=== PATIENT | male | born 1995 | race Caucasian/White ===

== ENCOUNTER 2019-04-14 16:50 | Emergency (ER) | payer SELFPAY ==
[2019-04-14 17:12] VITALS: BP 127/72; PULSE 79; TEMP 98.9; BMI 29.6
--- NOTE | 2019-04-14 17:29 | PDOC ---
History of Present Illness - General Chief Complaint: Injury Stated Complaint: LT ANKLE/RT KNEE PAIN Time Seen by Provider: 04/14/19 17:18 - History of Present Illness Initial Comments: 04/14/19 17:19 CHIEF COMPLAINT: L ankle and R knee pain HISTORY OF PRESENT ILLNESS: 24 yo M with no PMH presents to [facility] with left ankle and R knee pain since last night. Patient reports he slipped on a wet floor at a restaurant last night and twisted his left ankle and fell onto his R knee. Patient is ambulatory in ED but reports pain. No recent travel or sick contacts. PAST MEDICAL HISTORY: Denies past medical history FAMILY HISTORY: Denies SOCIAL HISTORY: Denies tobacco, alcohol, illicit drug use. SURGICAL HISTORY: Denies ALLERGIES: No known drug allergies REVIEW OF SYSTEMS General/Constitutional: Denies fever or chills. Denies weakness, weight change. HEENT: Denies change in vision. Denies ear pain or discharge. Denies sore throat. Cardiovascular: Denies chest pain or shortness of breath. Respiratory: Denies cough, wheezing, or hemoptysis. Gastrointestinal: Denies nausea, vomiting, diarrhea or constipation. Denies rectal bleeding. Genitourinary: Denies dysuria, frequency, or change in urination. Musculoskeletal: Pain to L ankle and R knee. Skin and breasts: Denies rash or easy bruising. Neurologic: Denies headache, vertigo, loss of consciousness, or loss of sensation. Psychiatric: Denies depression or anxiety. PHYSICAL EXAM General Appearance: Well-appearing, appropriately dressed. No apparent distress , no intoxication. HEENT: EOMI, PERRLA, normal ENT inspection, normal voice, TMs normal, pharynx normal. No conjunctival pallor. No photophobia, scleral icterus. Neck: Supple. Trachea midline. No tenderness, rigidity, carotid bruit, stridor , lymphadenopathy, or thyromegaly. Respiratory/Chest: Lungs CTAB. No shortness of breath, chest tenderness, respiratory distress, accessory muscle use. No crackles, rales, rhonchi, stridor , wheezing, dullness Cardiovascular: RRR. S1, S2. No JVD, murmur, bradycardia, tachycardia. Vascular Pulses: Dorsalis-Pedis (R): 2+, Dorsalis-Pedis (L): 2+ Gastrointestinal/Abdominal: Normal bowel sounds. Abdomen soft, non-distended. No tenderness or rebound tenderness. No organomegaly, pulsatile mass, guarding , hernia, hepatomegaly, splenomegaly. Lymphatic: No adenopathy, tenderness. Musculoskeletal/Extremities: Normal inspection. FROM of all extremities, normal capillary refill. Pelvis Stable. No CVA tenderness. No tenderness to extremities, pedal edema, swelling, erythema or deformity. Integumentary: Appropriate color, dry, warm. No cyanosis, erythema, jaundice or rash Neurologic: health safety instructor II-XII intact. Fully oriented, alert. Appropriate mood/affect. Motor strength 5/5. No appreciable EOM palsy, facial droop or sensory deficit. Past History - Past Medical History Allergies/Adverse Reactions: Allergies Allergy/AdvReac Type Severity Reaction Status Date / Time No Known Allergies Allergy Verified 04/14/19 17:12 Home Medications: Ambulatory Orders NK [No Known Home Medication] 04/14/19 COPD: No - Immunization History Immunization Up to Date: No - Psycho Social/Smoking Cessation Hx Smoking History: Current some day smoker Have you smoked in the past 12 months: Yes Information on smoking cessation initiated: No Hx Alcohol Use: No Drug/Substance Use Hx: No *Physical Exam - Vital Signs Last Vital Signs Temp Pulse Resp BP Pulse Ox 98.9 F 79 18 127/72 99 04/14/19 17:09 04/14/19 17:09 04/14/19 17:09 04/14/19 17:09 04/14/19 17:09 Medical Decision Making - Medical Decision Making 04/14/19 17:59 24 yo M with no PMH presents to [facility] with left ankle and R knee pain since last night. -ankle/knee xrays Xrays unremarkable. Patient exam unremarkable with no TTP, swelling, erythema, or ecchymosis to L ankle malleoli or R knee. Patient states "You saw my ankle, you know I sprained it, can I get a work note until Tuesday so I can get seen by my primary care doctor on Tuesday?" Provided work note to patient. Discharge - Discharge Information Problems reviewed: No Clinical Impression/Diagnosis: Knee pain, right anterior Ankle pain, left Qualifiers: Chronicity: acute Qualified Code(s): M25.572 - Pain in left ankle and joints of left foot Condition: Stable Disposition: HOME - Admission No - Follow up/Referral Referrals: Marvin Good MD [Staff Physician] - - Patient Discharge Instructions Patient Printed Discharge Instructions: DI for Ankle Pain, DI for Knee Pain - Post Discharge Activity Work/Back to School Note: Back to Work
[2019-04-14] MEDS ORDERED: KETOROLAC TROMETHAMINE 60 MG/2 ML VIAL IM ONE (18:02)
[2019-04-14] MEDS ORDERED: KETOROLAC TROMETHAMINE 60 MG/2 ML VIAL ONE (18:03)
--- NOTE | 2019-04-15 01:42 | PDOC ---
*Physical Exam - Vital Signs Last Vital Signs Temp Pulse Resp BP Pulse Ox 98.9 F 79 18 127/72 99 04/14/19 17:09 04/14/19 17:09 04/14/19 17:09 04/14/19 17:09 04/14/19 17:09 ED Treatment Course - Medications Given in the ED: ED Medications Discontinued Medications Generic Name Dose Route Start Last Admin Trade Name Geovanyq PRN Reason Stop Dose Admin Ketorolac Tromethamine 60 mg 04/14/19 18:02 04/14/19 18:07 Toradol Injection - IM 04/14/19 18:03 60 mg ONCE ONE Administration Medical Decision Making - Medical Decision Making 04/15/19 01:30 Pt comes for another work note. Discharge - Discharge Information Problems reviewed: Yes Clinical Impression/Diagnosis: Knee pain, right anterior Ankle pain, left Qualifiers: Chronicity: acute Qualified Code(s): M25.572 - Pain in left ankle and joints of left foot Condition: Stable Disposition: HOME - Follow up/Referral Referrals: Marvin Good MD [Staff Physician] - - Patient Discharge Instructions Patient Printed Discharge Instructions: DI for Ankle Pain, DI for Knee Pain - Post Discharge Activity Work/Back to School Note: Back to Work
== END 2019-04-14 18:11 | disposition home or self-care (01) ==
LOC: JERFT 16:50 → EDSEX 16:50 → JERFT 18:11
PROC: 3E0233Z Introduction of Anti-inflammatory into Muscle, Percutaneous Approach (ICD-10-PCS; principal; 2019-04-14)
DX: M25.572 Pain in left ankle and joints of left foot (principal); M25.561 Pain in right knee
CPT/HCPCS: 73562-TC-RT-FY; 73610-TC-LT-FY; 73630-TC-LT; 99281-25